=== PATIENT | female | born 1995 ===

== ENCOUNTER 2016-09-15 10:32 | Emergency (ER) | payer BC ==
[2016-09-15 12:29] VITALS: BP 127/68
--- NOTE | 2016-09-15 13:48 | UC ---
FLU HPI - HPI Summary HPI Summary: fever, chills, body aches, cough, began last night - History of Current Complaint Chief Complaint: UCGeneralIllness Stated Complaint: COUGH Time Seen by Provider: 09/15/16 13:41 Hx Obtained From: Patient Hx Last Menstrual Period: IUD ?: No Onset/Duration: Sudden Onset, Lasting Days - 1, Still Present Severity Currently: Moderate Severity Initially: Moderate Pain Intensity: 7 Pain Scale Used: 0-10 Numeric Associated Signs & Symptoms: Positive: Fever, Cough, Sore Throat, Nasal Congestion - Allergy/Home Medications Allergies/Adverse Reactions: Allergies Allergy/AdvReac Type Severity Reaction Status Date / Time Shellfish Allergy Allergy Hives Verified 09/15/16 12:29 Home Medications: Home Medications Ibuprofen [Advil] 400 mg PO Q6HR PRN 09/15/16 [History Confirmed 09/15/16] PMH/Surg Hx/FS Hx/Imm Hx Previously Healthy: Yes - Surgical History Surgical History: None - Family History Known Family History: Positive: None Family History: no cardiovascular issues in family lineage - Social History Occupation: Employed Part-time, Student Lives: With Family Alcohol Use: Weekly Substance Use Type: Marijuana Substance Use Comment - Amount & Last Used: daily Smoking Status (MU): Never Smoked Tobacco Review of Systems Constitutional: Fever, Chills, Fatigue Skin: Negative Eyes: Negative ENT: Nasal Discharge Respiratory: Cough Cardiovascular: Negative Gastrointestinal: Negative Genitourinary: Negative Motor: Negative Neurovascular: Negative Musculoskeletal: Arthralgia, Myalgia Neurological: Negative Psychological: Negative All Other Systems Reviewed And Are Negative: Yes Physical Exam Triage Information Reviewed: Yes Appearance: Well-Nourished, Ill-Appearing - moderate, Pain Distress - mild Vital Signs: Initial Vital Signs Temp 100.0 F 09/15/16 12:23 Pulse 117 09/15/16 12:23 Resp 16 09/15/16 12:23 BP 127/68 09/15/16 12:23 Pulse Ox 99 09/15/16 12:23 Vital Signs Reviewed: Yes Eye Exam: Normal Eyes: Positive: Conjunctiva Clear ENT Exam: Normal ENT: Positive: Normal ENT inspection, Hearing grossly normal, Pharynx normal, Nasal congestion, Nasal drainage, TMs normal. Negative: Tonsillar swelling, Tonsillar exudate, Trismus, Muffled/hoarse voice Dental Exam: Normal Neck exam: Normal Neck: Positive: Supple, Nontender, No Lymphadenopathy Respiratory Exam: Normal Respiratory: Positive: Chest non-tender, Lungs clear, Normal breath sounds, No respiratory distress, No accessory muscle use Cardiovascular Exam: Other Cardiovascular: Positive: No Murmur, Pulses Normal, Brisk Capillary Refill, Tachycardia Abdominal Exam: Normal Abdomen Description: Positive: Nontender, No Organomegaly, Soft Bowel Sounds: Positive: Present Musculoskeletal Exam: Normal Musculoskeletal: Positive: Strength Intact, ROM Intact, No Edema Neurological Exam: Normal Neurological: Positive: Alert, Muscle Tone Normal Psychological Exam: Normal Skin Exam: Normal Diagnostics - Laboratory Diagnostic Studies Completed/Ordered: influenza A (+) Flu Course/Dx - Course Course Of Treatment: Tamiflu, increase fluids, tylenol, ibuprofen for pain re- check prn - Differential Dx/Diagnosis Differential Diagnosis/HQI/PQRI: Broncholiolitis, Influenza, Pneumonia, RSV, Upper Respiratory Infection Provider Diagnoses: Influenza A Discharge - Discharge Plan Condition: Stable Disposition: HOME Prescriptions: Oseltamivir Phosphate [Tamiflu] 75 mg PO BID #10 cap Patient Education Materials: Influenza (ED) Forms: *School Release, *Work Release Referrals: [facility] [place] [facility] [Outside] - If Needed Non Staff,Doctor [Primary Care Provider] - Additional Instructions: Follow [facility] or return as needed
== END 2016-09-15 14:16 | disposition home or self-care (01) ==
LOC: UCCORT 10:32
DX: J09.X2 Influenza due to identified novel influenza A virus with other respiratory manifestations (principal); R00.0 Tachycardia, unspecified; Z91.013 Allergy to seafood
CPT/HCPCS: 87502; 99201; G0463